=== PATIENT | female | born 1985 | race Two or more races ===

== ENCOUNTER → 2016-06-01 | Outpatient (CLI) | payer OTHER ==
[~2016-06-01] MED LIST: BENA25CA2 PO; COLA100C PO; IBUP80TA PO; PERC5TAB6 PO; PERCOCET PO; STUATAB PO; VITAPRTA PO
== END ==
LOC: M LRY 12:45
PROVIDERS: ATTEND Physician Assistant
DX: B35.8 Other dermatophytoses (principal)

== ENCOUNTER → 2016-12-01 | Outpatient (REF) | payer OTHER ==
[~2016-12-01] MED LIST changes: -COLA100C PO; +COLA100C5 PO; +PERC5TAB12 PO; -PERC5TAB6 PO
== END ==
LOC: M SFHCLERA 10:28
PROVIDERS: ATTEND Physician Assistant
DX: Z20.818 Contact with and (suspected) exposure to other bacterial communicable diseases (principal)